=== PATIENT | female | born 1965 | race African-American/Black ===

== ENCOUNTER 2020-06-04 13:39 | Inpatient (IN) | payer MEDICAID ==
[~2020-06-04] VITALS: Ht 162.6 cm; Wt 130.0 kg
[2020-06-04] MEDS ORDERED: methylPREDNISolone SOD SUCC 125 MG/2 ML VL IV ONE (14:30)
[2020-06-04] MEDS ORDERED: ZINC SULFATE 220mg CAP or TAB PO ONE (14:30)
[2020-06-04] MEDS ORDERED: AZITHROMYCIN 500MG/ 250ML 250 ML IV ONE (14:30)
[2020-06-04] MEDS ORDERED: ASCORBIC ACID 500 MG TAB PO ONE (14:30)
[2020-06-04 15:02] LABS: Albumin 3.3 g/dL (3.4-5.0); Anion Gap 4 (5-15); Blood Urea Nitrogen 16 mg/dL (7-18); Calcium 8.6 mg/dL (8.5-10.1); Carbon Dioxide 30 mmol/L (21-32); Chloride 104 mmol/L (98-107); Glucose 106 mg/dL (74-106); Potassium 3.9 mmol/L (3.5-5.1); Sodium 138 mmol/L (136-145)
[2020-06-04 15:05] LABS: Basophils # (auto) 0 10 ^3/uL (0-0.2); Eosinophils # (auto) 0 10 ^3/uL (0-0.8); Hemoglobin 13.8 g/dL (12.2-16.2); Lymphocytes # (auto) 1.1 10 ^3/uL (0.4-5.4); Mean Corpuscular Hemoglobin 26.1 pg (28.0-32.0); Mean Corpuscular Hgb Conc. 32.3 g/dL (32.0-36.0); Mean Corpuscular Volume 80.9 fL (80.0-100.0); Neutrophils # (auto) 5.6 10 ^3/uL (1.6-8.6)
[2020-06-04 15:07] LABS: Basophils % (auto) 0.3 % (0.0-2.0); Hematocrit 42.8 % (36.0-46.0); Lymphocytes % (auto) 15.4 % (10.0-50.0); Monocytes # (auto) 0.7 10 ^3/uL (0-1.3); Monocytes % (auto) 8.9 % (0.0-12.0); Neutrophils % (auto) 75.4 % (37.0-80.0); Nucleated Red Blood Cells % 0.1 %; Platelet Count (auto) 196 10^3/uL (140-450); Red Blood Cells 5.29 10^6/uL (4.0-5.20); Red Cell Distribution Width 14.7 % (11.8-14.3); White Blood Cell 7.4 10^3/uL (4.4-10.8)
[2020-06-04 15:11] LABS: Alanine Aminotransferase 50 U/L (13-56); Alkaline Phosphatase 60 U/L (45-117); Aspartate Aminotransferase 61 U/L (15-37); BUN/Creatinine Ratio 20.3; Bilirubin, Total 0.4 mg/dL (0.2-1.0); CRP High Sensitivity 5.35 mg/dL (< 0.3); GFR African American 98 mL/min; GFR Non-African American 81 mL/min; Total Protein 8.4 g/dL (6.4-8.2)
[2020-06-04] MEDS ORDERED: ACETAMINOPHEN 325 MG TAB PO PRN (23:00)
[2020-06-04] MEDS ORDERED: MORPHINE SULF INJ 2 MG/ML SYRINGE 1ML IV PRN (23:00)
[2020-06-04] MEDS ORDERED: NITROGLYCERIN 0.4 MG SL TAB SL PRN (23:00)
[2020-06-04] MEDS ORDERED: TEMAZEPAM 15 MG CAP PO PRN (23:00)
[2020-06-04 23:17] LABS: Magnesium 2.7 mg/dL (1.6-2.6)
[2020-06-05 05:07] LABS: Basophils # (auto) 0 10 ^3/uL (0-0.2); Basophils % (auto) 0.1 % (0.0-2.0); Eosinophils # (auto) 0 10 ^3/uL (0-0.8); Hematocrit 41.2 % (36.0-46.0); Hemoglobin 13.4 g/dL (12.2-16.2); Monocytes # (auto) 0.5 10 ^3/uL (0-1.3)
[2020-06-05 05:09] LABS: Lymphocytes % (auto) 16.6 % (10.0-50.0); Mean Corpuscular Hemoglobin 26.2 pg (28.0-32.0); Mean Corpuscular Hgb Conc. 32.5 g/dL (32.0-36.0); Mean Corpuscular Volume 80.7 fL (80.0-100.0); Monocytes % (auto) 8.6 % (0.0-12.0); Neutrophils # (auto) 4.6 10 ^3/uL (1.6-8.6); Neutrophils % (auto) 74.7 % (37.0-80.0); Nucleated Red Blood Cells % 0.2 %; Platelet Count (auto) 203 10^3/uL (140-450); Red Blood Cells 5.11 10^6/uL (4.0-5.20); Red Cell Distribution Width 14.5 % (11.8-14.3); White Blood Cell 6.2 10^3/uL (4.4-10.8)
[2020-06-05 05:25] LABS: Albumin 2.8 g/dL (3.4-5.0); Calcium 8.8 mg/dL (8.5-10.1); Potassium 4.1 mmol/L (3.5-5.1)
[2020-06-05 05:29] LABS: Bilirubin, Total 0.2 mg/dL (0.2-1.0)
--- NOTE | 2020-06-05 08:20 | NUR ---
Respiratory note: PT AWAKE, AND ALERT. NO RESPIRATORY DISTRESS NOTED. SPO2 93% ON 6L NC, HR 86, RR 18, BS CLEAR/DIMINISHED BILATERALLY. PRN MEDNEB TX NOT INDICATED AT THIS TIME. PT INFORMED TO LET RN KNOW TO PAGE RT IF INCREASED WOB, SOB, OR WHEEZING OCCURS.
[2020-06-05] MEDS: AZITHROMYCIN 500MG/D5WorNS 250ml IV SCH (09:29)
[2020-06-05] MEDS: ASCORBIC ACID 1,000 MG TAB PO SCH (09:30)
[2020-06-05] MEDS: ZINC SULFATE 220mg CAP or TAB PO SCH (09:30)
[2020-06-05] MEDS: CHOLECALCIFEROL (VITD3) 2,000 UNIT CAP PO SCH (09:30)
[2020-06-05] MEDS: DexAMETHasone SOD PHOS 10MG/1ML VIAL INJ IV SCH (09:31)
[2020-06-05] MEDS: FAMOTIDINE 20 MG TAB PO SCH ×2 (09:31→22:44)
[2020-06-05] MEDS: ENOXAPARIN SOD 40 MG/0.4 ML SYRINGE SC SCH ×2 (09:39→22:40)
--- NOTE | 2020-06-06 05:08 | NUR ---
Telemetry admit from ER KARLI RAND admitted to Telemetry unit. Patient oriented to Levi Kumar, primary RN, unit, room, bed, and unit policies regarding patient care and visiting hours. Patient now on continuous telemetry monitoring, tele box #51 and telemetry reading on arrival to unit is SR 70. Patient placed on 4 L NC with an SPO2 of 92%. Patient given and educated on how to use her IS. Patient weighed by bedscale and encouraged to call if they need something. All questions and concerns addressed, patient verbalized understanding.
[2020-06-06 05:30] VITALS: BP 120/78
[2020-06-06 06:17] VITALS: BP 120/78
[2020-06-06 08:00] VITALS: BP 107/69
[2020-06-06] MEDS: AZITHROMYCIN 500MG/D5WorNS 250ml IV SCH (10:42)
[2020-06-06] MEDS: DexAMETHasone SOD PHOS 10MG/1ML VIAL INJ IV SCH (10:43)
[2020-06-06] MEDS: ZINC SULFATE 220mg CAP or TAB PO SCH (10:43)
[2020-06-06] MEDS: ASCORBIC ACID 1,000 MG TAB PO SCH (10:43)
[2020-06-06] MEDS: ENOXAPARIN SOD 40 MG/0.4 ML SYRINGE SC SCH ×2 (10:43→21:22)
[2020-06-06] MEDS: CHOLECALCIFEROL (VITD3) 2,000 UNIT CAP PO SCH (10:44)
[2020-06-06] MEDS: FAMOTIDINE 20 MG TAB PO SCH ×2 (10:44→21:21)
--- NOTE | 2020-06-06 14:30 | NUR ---
IV CATHETER LEAKING, IV CATHETER DC'D, CATHETER INTACT, NO PHLEBITIS. IV INSERTION TO RIGHT HAND #22. FLUSHES WELL. PT TOLERATED PROCEDURE WELL.
[2020-06-06] MEDS ORDERED: REMDESIVIR PER PHARMACY 0 ML IV SCH (15:00)
[2020-06-06 17:00] VITALS: BP 120/67
[2020-06-06] MEDS ORDERED: REMDESIVIR 200 MG in NS 210ml LOADING DOSE ADULT IV ONE (17:00)
--- NOTE | 2020-06-06 19:20 | NUR ---
OPENING SHIFT NOTE Assumed care of patient who is COVID positive, is alert and oriented currently on 2L NC with no S/S of distress or SOB noted at this time. Denies any pain at this time. Patient is ambulatory without assist. POC discussed with patient, all questions answered, patient verbalized understanding. Bed is locked in lowest position, side rails up x2. Call light within reach, patient is encouraged to call for assistance as needed. Will continue to monitor Q1hr/PRN.
[2020-06-06 21:00] VITALS: BP 107/50
[2020-06-06] MEDS: ALBUTEROL SULF HFA 90MCG INH 200DOSE IN PRN (21:48)
[2020-06-07 05:00] VITALS: BP 100/57
[2020-06-07 07:25] LABS: Basophils # (auto) 0 10 ^3/uL (0-0.2); Eosinophils # (auto) 0 10 ^3/uL (0-0.8); Monocytes # (auto) 0.8 10 ^3/uL (0-1.3); Neutrophils # (auto) 2.8 10 ^3/uL (1.6-8.6); Nucleated Red Blood Cells % 0.3 %; White Blood Cell 5.2 10^3/uL (4.4-10.8)
[2020-06-07 07:27] LABS: Calcium 8.9 mg/dL (8.5-10.1); Potassium 3.6 mmol/L (3.5-5.1)
[2020-06-07 07:28] LABS: Basophils % (auto) 0.2 % (0.0-2.0); Hematocrit 41.3 % (36.0-46.0); Hemoglobin 13.4 g/dL (12.2-16.2); Lymphocytes # (auto) 1.5 10 ^3/uL (0.4-5.4); Lymphocytes % (auto) 29.7 % (10.0-50.0); Mean Corpuscular Hemoglobin 26.2 pg (28.0-32.0); Mean Corpuscular Hgb Conc. 32.3 g/dL (32.0-36.0); Monocytes % (auto) 15.2 % (0.0-12.0); Neutrophils % (auto) 54.9 % (37.0-80.0); Platelet Count (auto) 252 10^3/uL (140-450); Red Cell Distribution Width 14.3 % (11.8-14.3)
[2020-06-07 07:32] LABS: Magnesium 2.6 mg/dL (1.6-2.6)
--- NOTE | 2020-06-07 07:37 | NUR ---
CARE ENDORSED TO DAY SHIFT RN
--- NOTE | 2020-06-07 10:22 | NUR ---
Assessment Patient is a 54-year-old female who is alert and oriented. Patient resided with but recently . Patient will be returning home to her prior living arrangements post discharge and a friend will transport her home at anytime on discharge day. Per patient prior to admission she could care for her own ADL's and functioned independently. Patient does not have any medical equipment now. Advised patient there is a social service consult for home oxygen at 2l/min. Informed patient clinical information will be faxed to [facility] and and they will deliver portable oxygen to bedside and concentrate oxygen to patient home. Informed patient she has the right to participate in all discharge planning. Patient does not have an advance directive. Patient has been provided with information for an advanced directive. Patient verbalized understanding and agrees to discharge plan. Faxed clinical information to [facility] group and SG. Placed call to MORRIS Bridges at 10:00 no answer, left a message regarding MD orders for home oxygen. [facility] Addendum: 06/07/20 at 1035 by NISHANT LAWS Amended: Links added.
[2020-06-07] MEDS: AZITHROMYCIN 500MG/D5WorNS 250ml IV SCH (10:31)
[2020-06-07] MEDS: ENOXAPARIN SOD 40 MG/0.4 ML SYRINGE SC SCH (11:05)
[2020-06-07] MEDS: ZINC SULFATE 220mg CAP or TAB PO SCH (11:05)
[2020-06-07] MEDS: CHOLECALCIFEROL (VITD3) 2,000 UNIT CAP PO SCH (11:06)
[2020-06-07] MEDS: ASCORBIC ACID 1,000 MG TAB PO SCH (11:06)
[2020-06-07] MEDS: DexAMETHasone SOD PHOS 10MG/1ML VIAL INJ IV SCH (11:07)
[2020-06-07] MEDS: FAMOTIDINE 20 MG TAB PO SCH (11:07)
--- NOTE | 2020-06-07 12:30 | NUR ---
DR. HERZOG CALLED AND MESSAGE LEFT FOR DISCHARGE CLEARANCE. AWAITING CALL BACK.
--- NOTE | 2020-06-07 14:20 | NUR ---
REP AT HOME CARE (NOREEN) REPORTS SHE WILL CALL PT AND CALL RN WITH ETA FOR O2 DELIVERY. PT REPORTS NOREEN SPOKE TO HER IN REGARDS TO HOME O2 DELIVERY. WILL CONTINUE TO MONITOR.
--- NOTE | 2020-06-07 14:30 | NUR ---
DR. HERZOG CLEARED PT FOR DC.
[2020-06-07 14:42] VITALS: BP 116/74
[2020-06-07] MEDS: ALBUTEROL SULF HFA 90MCG INH 200DOSE IN PRN (14:49)
[2020-06-07] MEDS ORDERED: REMDESIVIR 100 MG in SODIUM CHL 0.9% 250 ML IV SCH (15:00)
--- NOTE | 2020-06-07 15:06 | NUR ---
D/C Planning Received a call from Aleta with [facility] advising me patient portable oxygen will be deliver to the front lobby between 15:00-16:30. Informed TANGELA Oleary.
--- NOTE | 2020-06-07 17:59 | NUR ---
DISCHARGE INSTRUCTIONS PROVIDED, PT VERBALIZED UNDERSTANDING FOR PRESCRIPTION ORDERS AND FOLLOW UP APPOINTMENT. EDUCATIONAL MATERIAL PROVIDED, ALL QUESTIONS AND CONCERNS ADDRESSED. IV CATHETER DC'D, CATHETER INTACT, NO PHLEBITIS. TELE BOX REMOVED AND RETURNED TO TELE DEPT.
--- NOTE | 2020-06-07 18:30 | NUR ---
PT SAFELY ESCORTED OUT OF UNIT VIA WHEELCHAIR. NO S/S OF DISTRESS.
== END 2020-06-07 18:30 | disposition home or self-care (01) | DRG 137 ==
LOC: ER 13:39 → OVERFLOW 22:51 → TELE-WESTW 06-06 05:08
PROVIDERS: ADMIT Nurse Practitioner; ATTEND Internal Medicine
PROC: XW033E5 Introduction of Remdesivir Anti-infective into Peripheral Vein, Percutaneous Approach, New Technology Group 5 (ICD-10-PCS; principal; 2020-06-06)
DX: U07.1 COVID-19 (principal); J12.89 Other viral pneumonia; J96.01 Acute respiratory failure with hypoxia; E44.0 Moderate protein-calorie malnutrition; R79.82 Elevated C-reactive protein (CRP); E66.01 Morbid (severe) obesity due to excess calories; J45.909 Unspecified asthma, uncomplicated; J98.11 Atelectasis; Z68.42 Body mass index [BMI] 45.0-49.9, adult; Z80.9 Family history of malignant neoplasm, unspecified; Z90.49 Acquired absence of other specified parts of digestive tract; Z98.51 Tubal ligation status
CPT/HCPCS: 36415; 71045; 80048; 80053; 82728; 83036; 83605; 83615; 83735; 84443; 84484; 85025; 85379; 86141; 87040; 87426; 93005; 94640; 96365; 96366; 96375; G0378; J1100